=== PATIENT | female | born 1995 | race African-American/Black ===

== ENCOUNTER 2016-12-17 10:56 | Emergency (ER) | payer OTHER ==
[~2016-12-17] VITALS: Ht 162.6 cm; Wt 75.8 kg
[~2016-12-17 10:56] MED LIST: ACTICIN5% TOP; BENADRYL ALLERG25 MG PO; HYDROXYZINE50 MG PO; MACROBID 100 M100 MG PO; MACROBID100 MG PO; PERMETHRIN5% TOP
--- NOTE | 2016-12-17 11:32 | ED GENERAL ADULT ---
History of Present Illness General Chief Complaint: Skin Rash/ Abcess Stated Complaint: CYST ON LEG Source: patient Exam Limitations: no limitations Vital Signs & Intake/Output Vital Signs & Intake/Output Vital Signs Date Time Temp Pulse Resp B/P Pulse O2 O2 Flow FiO2 Ox Delivery Rate 12/17 1415 97.2 91 18 135/75 98 Room Air 12/17 1119 96.0 84 18 115/72 99 Room Air Allergies Coded Allergies: doxycycline (Intermediate, NAUSEA 12/17/16) Penicillins (RASH 12/17/16) sulfamethoxazole (From BACTRIM) (RASH 12/17/16) trimethoprim (From BACTRIM) (RASH 12/17/16) Reconcile Medications Clindamycin HCl (Cleocin HCl) 300 MG CAPSULE 1 CAP PO BID ABSCESS Nitrofurantoin Monohyd/M-Cryst (Macrobid 100 MG Capsule) 100 MG CAPSULE 1 CAP PO BID UTI with food Permethrin 5% CRE 1 SVETLANA TOP ONCE SCABIES APPLY FROM NECK TO TOES, LEAVE ON FOR 8-12 HOURS AND THEN WASH OFF. rEPEAT IN 2 WEEKS IF NECESSARY Triage Note: C/O PAINFUL CYST ON LEFT GROIN X 2 DAYS. Triage Nurses Notes Reviewed? yes Onset: Gradual Duration: day(s): Timing: recent history : Yes Patient currently breastfeeds: No HPI: 12/17/16 11:58 This 21-year-old female presents to the emergency department complaining of a left follicular abscess to the left groin. The onset of the symptoms were gradual, the duration has been several days, the severity is significant as her symptoms required to come to the emergency department for care. She is allergic to amoxicillin and Bactrim. She is currently 18 weeks ,she denies any abdominal pain or vaginal bleeding. Past History Travel History Traveled to [place] past 21 day No Medical History Any Pertinent Medical History? 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 No Review of Systems Review of Systems Constitutional: Denies: fever. EENTM: Denies: visual changes. Respiratory: Denies: short of breath. Cardiovascular: Denies: chest pain. GI: Denies: abdominal pain. Genitourinary: Reports: no symptoms. Musculoskeletal: Reports: no symptoms. Skin: Reports: see HPI. Neurological/Psychological: Reports: no symptoms. Hematologic/Endocrine: Reports: no symptoms. Immunologic/Allergic: Reports: no symptoms. Physical Exam Physical Exam General Appearance: no apparent distress, alert, awake, mild distress Head: atraumatic, normal appearance Eyes: Bilateral: normal appearance, PERRL, EOMI. Ears, Nose, Throat: normal pharynx, normal ENT inspection Neck: normal inspection, supple, full range of motion Respiratory: normal breath sounds, chest non-tender, no respiratory distress Cardiovascular: regular rate/rhythm Peripheral Pulses: 4+ radial (R), 4+ radial (L) Gastrointestinal: soft, non-tender, uterus palpable at the umbilicus Back: normal range of motion Extremities: normal inspection, normal range of motion, no edema Neurologic/Psych: no motor/sensory deficits, awake, alert, oriented x 3 Skin: intact, normal color, warm/dry Core Measures ACS in differential dx? No CVA/TIA Diagnosis: No Severe Sepsis Present: No Septic Shock Present: No Progress Differential Diagnoses I considered the following diagnoses in my evaluation of the patient: [Abscess, necrotizing fasciitis, all are abscess, Bartholin gland abscess, cellulitis] Plan of Care: Orders Procedure Date/time Status TRUNK AREA CULTURE 12/17 1404 Active Microbiology 12/17 1400 TRUNK: Culture & Sensitivity - RECD 12/17 1400 TRUNK: Gram Stain - RECD Initial ED EKG: none Departure Departure Disposition: HOME OR SELF CARE Condition: Stable Clinical Impression Primary Impression: Abscess Secondary Impressions: Referrals: DARRYN ANDERSON APRN (PCP/Family) Departure Forms: Customer Survey General Discharge Information Prescriptions: Current Visit Scripts Clindamycin HCl (Cleocin HCl) 1 CAP PO BID #8 CAP Comments Abdominal ultrasound was done which revealed motion. I can clearly see the hands moving. There was good cardiac activity. The patient has no abdominal pain or vaginal bleeding. 5 mL of gross pus was extruded from the abscess. The abscess was packed with iodoform. The patient will follow-up in ED with me tomorrow. She was put on a short course of clindamycin. 12/18/15 Under sterile technique and local anesthesia 5 mL of 1% lidocaine without epi, the left groin abscess was I&D. The patient had no complications. I discussed the case with her CRYOLITE RECOVERY OPERATOR Dr. Simons. Will follow-up the patient on Wednesday. Critical Care Note Critical Care Note Critical Care Time: non-applicable
[2016-12-17] MEDS ORDERED: CLEOCIN HCL300 M1 PO (14:09)
[2016-12-17 14:15] VITALS: BP 135/75
== END 2016-12-17 14:18 ==
LOC: ERH 10:56
DX: O99.89 Other specified diseases and conditions complicating pregnancy, childbirth and the puerperium (principal); L02.214 Cutaneous abscess of groin; Z3A.18 18 weeks gestation of pregnancy
CPT/HCPCS: 87184; 87070; 87147